=== PATIENT | male | born 1985 | race Hispanic/Latino ===

== ENCOUNTER 2021-12-10 21:36 | Emergency (ER) | payer OTHER, SELFPAY ==
[2021-12-10] MEDS ORDERED: Lidocaine 1% PF 5 ML VIAL ONE (22:06)
[2021-12-10] MEDS ORDERED: Bacitracin 1 PK ONE (22:17)
[2021-12-10] MEDS ORDERED: Sulfameth/Trimethoprim DS 800-160mg TAB ONE (22:44)
== END 2021-12-10 23:08 | disposition home or self-care (01) ==
LOC: BURERS 21:36
DX: S61.213A Laceration without foreign body of left middle finger without damage to nail, initial encounter (principal); W26.8XXA Contact with other sharp object(s), not elsewhere classified, initial encounter
CPT/HCPCS: 12001